=== PATIENT | male | born 1965 | race Caucasian/White ===

== ENCOUNTER 2016-05-16 16:20 | Emergency (ER) | payer MEDICARE, MEDICAID ==
[~2016-05-16] VITALS: Ht 190.5 cm; Wt 88.6 kg
[~2016-05-16 16:20] MED LIST: LORA2TAB PO; SERT50TA PO
[2016-05-16 16:22] VITALS: BP 120/80; PULSE 76; RESP 20; O2SAT 98
--- NOTE | 2016-05-16 18:24 | ED.REPORT ---
HPI-Psychiatric Illness Date of Service May 16, 2016 ED Provider: Frederick Zavala MD Pt is a 50 y/o male w/ a hx of alcohol abuse presenting to the ED for medical clearance for detox. His last drink was 11:30 this morning. He is experiencing intermittent symptoms of withdrawal which include mild diaphoresis and diarrhea which he believes is related to alcohol. He denies hematochezia, bowel incontinence. He was given an Ativan taper last time. Denies drug use other than THC. Breathalyzer at time of interview = 0. Nursing Notes Stated Complaint: DETOX Chief Complaint: Substance Abuse Nursing Notes Reviewed: Yes Allergies: Coded Allergies: No Known Allergies (Verified Allergy, Unknown, 06/14/15) Scheduled Sertraline HCl (Zoloft) 50 Mg Tablet 50 MG PO DAILY Scheduled PRN Lorazepam (Lorazepam) 2 Mg Tablet 2 MG PO TID PRN PRN For Anxiety Lorazepam (Ativan) 1 Mg Tablet 1 MG PO TID PRN PRN For Alcohol Cessation General Time Seen by MD: 18:18 Chief Complaint Other (Detox clearance) Hx Obtained From: Patient Arrived By: Walk-in Onset Occurred: 5 - 8 hours ago Symptom Duration: Since onset Progression Since Onset: Unchanged Severity: Current: No pain currently Severity: Maximum: No pain Recent Healthcare: Previous diagnosis Similar Sx Previous: Yes Risk-Psychiatric Illness Suicide Risk Stratification RF Statements: Risk factors N/A Past Medical History Past Medical History ADHD- Patient believes he has had it since he was a child Anxiety Alcohol abuse Past Surgical History Cervical spine fusion Family History Noncontributory Smoking History Current Every Day Smoker Social History Alcohol Use: >5 per day Drug Use: THC Other Social History: , Local resident Ambulatory Status Independent Review of Systems Constitutional: Denies: Chills, Fever GI: Reports: Diarrhea, Denies: Hematochezia Skin: Reports Diaphoresis Neurologic: Denies: Shaking Psychiatric: Denies: Hallucinations, auditory, Hallucinations, visual Complete sys rev & neg: except as marked. Physical Exam Initial Vital Signs Vital Signs (First) Date Time Temp Pulse Resp B/P Pulse Ox O2 Delivery O2 Flow Rate FiO2 05/16/16 16:22 36.1 76 20 120/80 98 Room Air Initial VS: Reviewed, Vital signs normal Head / Eyes: Atraumatic, Normocephalic, PERRL ENT: Mucous membranes moist, Conjunctiva normal, No scleral icterus Neck: Supple, Full range of motion Respiratory: Breath sounds normal, Clear to auscultation, No respiratory distress Cardiovascular: Regular rate & rhythm, Heart sounds normal, Intact distal pulses Abdomen / GI: Soft, Non-tender, No guarding, No rebound, No distention Extremities: Vascular intact, Neuro intact, No swelling, No tenderness Skin: Warm, Dry, No cyanosis General/Constitutional: Awake, Alert, No acute distress, Cooperative, Not toxic appearing Appearance / Presentation: Negative: Intoxicated Neurologic: Oriented X3, Speech NL, No motor deficits, No sensory deficits, Memory NL, Gait NL Psychiatric: Affect NL, Mood NL, No hallucinations, Cognitive function NL, Judgment/insight NL, Thought content NL Re-Eval/Medical Decision Counseled Regarding: Diagnosis, Need for follow-up, When/why to return to ED Discharge & Departure Impression: Primary Impression: Alcohol abuse )( Condition at Discharge: No danger to self, No danger to others, No suicidal ideation, No homicidal ideation, Clear for alcohol rehab Disposition: Home Discharge Condition All VS Reviewed: Yes Condition: Stable Additional Instructions: Go directly to detox. Take the Ativan taper as prescribed. Do not miss any doses. Return to the emergency department if you believe you are experiencing alcohol withdrawal that is not manageable by [facility]. Referrals: NOPCP (PCP) Scribe Attestation Portions of this note were transcribed by Ricardo Wills. I, Dr. Zavala personally performed the history, physical exam and medical decision-making; I reviewed and confirmed the accuracy of the information in the transcribed note. Signed by August Meyer, 05/16/16 - 1829 Frederick Zavala MD May 16, 2016 18:24 RICARDO WILLS May 16, 2016 18:28
[2016-05-16] MEDS ORDERED: LORA-303 PO (18:25)
== END 2016-05-16 18:50 | disposition home or self-care (01) ==
LOC: SED 16:20
DX: F10.129 Alcohol abuse with intoxication, unspecified (principal); R19.7 Diarrhea, unspecified; R61 Generalized hyperhidrosis; F90.9 Attention-deficit hyperactivity disorder, unspecified type; F17.200 Nicotine dependence, unspecified, uncomplicated

== ENCOUNTER 2016-06-27 16:20 | Emergency (ER) | payer MEDICARE, MEDICAID ==
[~2016-06-27] VITALS: Ht 190.5 cm; Wt 90.0 kg
[~2016-06-27 16:20] MED LIST changes: +LORA-303 PO
[2016-06-27 16:32] VITALS: BP 102/67; PULSE 71; RESP 16; O2SAT 97
--- NOTE | 2016-06-27 20:53 | ED.REPORT ---
HPI-General Illness Date of Service Jun 27, 2016 ED Provider: Audra Molina MD A 50 year old male with a history of ADHD, anxiety, and alcohol abuse presents to the ED requesting evaluation for alcohol detox before enrolling in [facility], where he currently has a bed reserved. The patient's last alcoholic drink was 12:30 today. He reports nausea and mild tremor currently. The patient denies fever, vomiting, diarrhea, or other symptoms. He has had similar detox attempts in the past treated with an Ativan taper. Nursing Notes Stated Complaint: DETOX Chief Complaint: Substance Abuse Nursing Notes Reviewed: Yes Allergies: Coded Allergies: No Known Allergies (Verified Allergy, Unknown, 06/27/16) Scheduled Sertraline HCl (Zoloft) 50 Mg Tablet 50 MG PO DAILY Scheduled PRN Lorazepam (Lorazepam) 2 Mg Tablet 2 MG PO TID PRN PRN For Anxiety Lorazepam (Ativan) 1 Mg Tablet 1 MG PO TID PRN PRN For Alcohol Cessation General Time Seen by MD: 20:52 Chief Complaint Other (Alcohol Detox) Hx Obtained From: Patient Arrived By: Walk-in Onset Occurred: 5 - 8 hours ago Symptom Duration: Since onset Severity: Current: No pain currently Severity: Maximum: No pain Associated with: Reports: Nausea, Denies: Fever Pertinent Negative: Relieved by nothing Context Related History: Reports Drug dependence, Reports Psychiatric history Recent Healthcare: No recent doctor visit Similar Sx Previous: Yes Past Medical History Past Medical History ADHD- Patient believes he has had it since he was a child Anxiety Alcohol abuse Past Surgical History Cervical spine fusion Family History Noncontributory Smoking History Current Every Day Smoker Social History Alcohol Use: >5 per day Drug Use: THC Other Social History: , Local resident Ambulatory Status Independent Review of Systems + Request for alcohol detox evaluation Full Review of Systems Constitutional: Denies: Fever Respiratory: Denies: Non-productive cough, Shortness of breath GI: Reports: Nausea, Denies: Diarrhea, Vomiting Neurologic: Reports: Shaking (Mild tremor) Complete sys rev & neg: except as marked. Physical Exam Vital Signs Vital Signs Date Time Temp Pulse Resp B/P Pulse Ox O2 Delivery O2 Flow Rate FiO2 06/27/16 22:08 36.8 72 12 107/64 99 Room Air 06/27/16 21:23 36.7 72 14 108/64 98 Room Air 06/27/16 16:32 36.4 71 16 102/67 97 Room Air Initial VS: Reviewed, Vital signs normal Head / Eyes: Atraumatic, Normocephalic ENT: Conjunctiva normal, No scleral icterus Neck: Supple, Full range of motion Respiratory: Breath sounds normal, Clear to auscultation, No respiratory distress Extremities: Vascular intact, Neuro intact, No swelling Skin: Warm, Dry, No cyanosis Psychiatric: Mood/affect normal, Behavior normal, Normal thought content General/Constitutional: Awake, Alert, No acute distress Cardiovascular: Heart rate NL, Regular rhythm, Heart sounds NL, No murmurs, No rubs Neurologic: Oriented X3, Speech NL Movement Abnormality: Positive: Tremor Interpretation & Diagnostics Breathalyzer: 0 URINE DRUG SCREEN: + Benzodiazepines + Marijuana Otherwise Negative Lab Results Interpretation Result Diagram: 06/27/16211106/27/162111 Test 06/27/16 19:22 06/27/16 21:12 Hold Urine Received (Received) White Blood Count 11.5th/mm3 (3.8-10.1) Red Blood Count 5.03mil/mm3 (4.40-5.80) Hemoglobin 15.8g/dL (13.8-17.2) Hematocrit 46.6% (41.0-50.0) Mean Corpuscular Volume 92.6fL (81-100) Mean Corpuscular Hemoglobin 31.4pg (27.0-35.0) Mean Corpuscular Hemoglobin Concent 33.9% (32.0-37.0) Red Cell Distribution Width 13.4% (12.3-15.4) Platelet Count 460bil/L (150-400) Neutrophils (%) (Auto) 65.8% (40-74) Lymphocytes (%) (Auto) 22.7% (14-46) Monocytes (%) (Auto) 8.2% (4-12) Eosinophils (%) (Auto) 2.5% (0-5) Basophils (%) (Auto) 0.5% (0-3) Sodium Level 138mEq/L (134-144) Potassium Level 4.2mEq/L (3.5-5.2) Chloride Level 100mEq/L (97-108) Carbon Dioxide Level 24mmol/L (18-29) Blood Urea Nitrogen 14mg/dL (6-24) Creatinine 0.91mg/dL (0.76-1.27) Estimat Glomerular Filtration Rate 94mL/min (>59) Glucose Level 89mg/dL (60-99) Calcium Level 9.6mg/dL (8.5-10.1) Magnesium Level 2.2mg/dL (1.6-2.6) Total Bilirubin 0.5mg/dL (0.0-1.2) Aspartate Amino Transf (AST/SGOT) 26U/L (0-50) Alanine Aminotransferase (ALT/SGPT) 24U/L (0-44) Alkaline Phosphatase 103U/L (25-150) Total Protein 8.0g/dL (6.4-8.4) Albumin 4.7g/dL (3.4-5.0) Re-Eval/Medical Decision Med Decision/Clinical Course The patient requests medical clearance for detox from alcohol. He does not show any significant signs of alcohol withdrawal. He already has a bed awaiting him. He does not have any physical complaints and was medically cleared. Source of Hx: Old records Time of Eval: 21:30 Patient Status: Condition improved Re-Evaluation/Progress Note: Discussed with patient lab results, diagnosis, and plan for discharge to [facility]. Follow-up and return to the ER instructions given. Patient agrees with plan for care and all questions were addressed. Counseled Regarding: Diagnosis, Lab results, Need for follow-up, When/why to return to ED Discharge & Departure Primary Impression: Alcohol abuse Disposition: Home Discharge Condition All VS Reviewed: Yes Condition: Improved Patient Instructions: Alcohol Withdrawal (ED) Additional Instructions: Go straight to [facility]. Use the Ativan taper as prescribed. Call your primary care provider tomorrow for a follow-up appointment. Return to the ER with any new or worsening symptoms. Referrals: NOPCP (PCP) Scribe Attestation Portions of this note were transcribed by Daysi Cool. I, Dr. Molina, personally performed the history, physical exam, and medical decision-making; I reviewed and confirmed the accuracy of the information in the transcribed note. Signed by: August Viera, 06/27/2016, 22:40 Audra Molina MD Jun 27, 2016 20:53 DAYSI COOL Jun 27, 2016 21:02
[2016-06-27] MEDS ORDERED: LORazepam 1 mg Tablet PO ONE (21:00)
[2016-06-27] MEDS ORDERED: _LORazepam 2 MG Tablet PO SCH (21:20)
[2016-06-27 21:23] VITALS: BP 108/64; PULSE 72; RESP 14; O2SAT 98
[2016-06-27 21:28] LABS: BASOPHILS % (AUTO) 0.5 % (0-3); EOSINOPHILS % (AUTO) 2.5 % (0-5); MONOCYTES % (AUTO) 8.2 % (4-12); Mean Corpuscular Hemoglobin 31.4 pg (27.0-35.0); Mean Corpuscular Volume 92.6 fL (81-100); NEUTROPHILS % (AUTO) 65.8 % (40-74); Platelet Count 460 bil/L (150-400)
[2016-06-27 21:51] LABS: Magnesium 2.2 mg/dL (1.6-2.6)
[2016-06-27 22:08] VITALS: BP 107/64; PULSE 72; RESP 12; O2SAT 99
== END 2016-06-27 23:15 | disposition other institution (70) ==
LOC: SED 16:20
DX: F10.129 Alcohol abuse with intoxication, unspecified (principal); R11.0 Nausea; R25.1 Tremor, unspecified; F90.9 Attention-deficit hyperactivity disorder, unspecified type; F17.200 Nicotine dependence, unspecified, uncomplicated

== ENCOUNTER 2016-07-02 15:24 | Emergency (ER) | payer MEDICARE, MEDICAID ==
[~2016-07-02] VITALS: Ht 190.5 cm; Wt 90.0 kg
[2016-07-02 15:30] VITALS: BP 160/108; PULSE 87; RESP 16; O2SAT 96
--- NOTE | 2016-07-02 15:48 | ED.REPORT ---
HPI-Psychiatric Illness Date of Service Jul 02, 2016 ED Provider: Mitul Barrera DO A 50 year old male with a history of ADHD, anxiety, and EtOH abuse presents to the ED with suicidal ideation that began a few days ago. Patient was seen in the ED on 06/27 seeking detox and was placed in a bed at [facility]. He reports that he recently relapsed and has been using THC, meth, and EtOH. Patient states that he has active thoughts of "walking in front of traffic" or "shooting myself in the head". He reportedly feels "out of control" and has been "walking aimlessly" for the past few days. Associated symptoms include recent stress and insomnia for the past 2 days. He reports similar thoughts in the past, but states that he has never told anyone. He denies any homicidal ideation or hallucinations. Nursing Notes Stated Complaint: SUICIDAL Chief Complaint: Psychiatric Complaint Nursing Notes Reviewed: Yes Allergies: Coded Allergies: No Known Allergies (Verified Allergy, Unknown, 07/02/16) No Active Prescriptions or Reported Meds General Time Seen by MD: 15:45 Chief Complaint Suicidal ideation Hx Obtained From: Patient Arrived By: Walk-in Onset Occurred: 3 days ago Context of Onset: Illicit drug use, EtOH use, Marijuana use Symptom Duration: Since onset Progression Since Onset: Constant Pertinent Negative: Pt denies other symptoms Recent Healthcare: No recent hospitalization, Recent doctor visit Risk-Psychiatric Illness Suicide Risk Stratification Suicide Risk Factors - Adult: : Substance abuse RF Statements: Risk factors reviewed Past Medical History Past Medical History ADHD- Patient believes he has had it since he was a child Anxiety Alcohol abuse Past Surgical History Cervical spine fusion Family History Noncontributory Smoking History Current Every Day Smoker Social History Alcohol Use: >5 per day Drug Use: Meth, THC Other Social History: , Local resident Ambulatory Status Independent Review of Systems Constitutional: Denies: Chills, Fever Respiratory: Denies: Shortness of breath GI: Denies: Nausea, Vomiting Neurologic: Denies: Change LOC Psychiatric: Reports: Insomnia, Stress, Suicidal ideation, Denies: Hallucinations, auditory, Hallucinations, visual, Homicidal ideation Complete sys rev & neg: except as marked. Physical Exam Initial Vital Signs Vital Signs (First) Date Time Temp Pulse Resp B/P Pulse Ox O2 Delivery O2 Flow Rate FiO2 07/02/16 15:30 36.1 87 16 160/108 96 Room Air Initial VS: Reviewed Head / Eyes: Atraumatic, Normocephalic, PERRL Extremities: Vascular intact, Neuro intact, No swelling, No tenderness Skin: Warm, Dry, No cyanosis General/Constitutional: Awake, Alert Neurologic: Oriented X3, Speech NL, No motor deficits, No sensory deficits Psychiatric: Not homicidal, No hallucinations Abnormal Mood/Affect: Positive: Flat affect Abnormal Thinking / Perception: Positive: Suicidal, with plan Respiratory / Chest: Atraumatic, No respiratory distress Abdomen: Atraumatic Interpretation & Diagnostics Lab Results Interpretation Result Diagram: 07/02/16 1655 07/02/16 1655 Test 07/02/16 16:55 White Blood Count 13.6th/mm3 (3.8-10.1) Red Blood Count 5.34mil/mm3 (4.40-5.80) Hemoglobin 16.8g/dL (13.8-17.2) Hematocrit 48.4% (41.0-50.0) Mean Corpuscular Volume 90.6fL (81-100) Mean Corpuscular Hemoglobin 31.5pg (27.0-35.0) Mean Corpuscular Hemoglobin Concent 34.7% (32.0-37.0) Red Cell Distribution Width 13.5% (12.3-15.4) Platelet Count 437bil/L (150-400) Neutrophils (%) (Auto) 75.1% (40-74) Lymphocytes (%) (Auto) 15.9% (14-46) Monocytes (%) (Auto) 7.9% (4-12) Eosinophils (%) (Auto) 0.5% (0-5) Basophils (%) (Auto) 0.4% (0-3) Sodium Level 139mEq/L (134-144) Potassium Level 4.3mEq/L (3.5-5.2) Chloride Level 98mEq/L (97-108) Carbon Dioxide Level 22mmol/L (18-29) Blood Urea Nitrogen 12mg/dL (6-24) Creatinine 0.80mg/dL (0.76-1.27) Estimat Glomerular Filtration Rate 109mL/min (>59) Glucose Level 94mg/dL (60-99) Calcium Level 10.1mg/dL (8.5-10.1) Total Bilirubin 0.9mg/dL (0.0-1.2) Aspartate Amino Transf (AST/SGOT) 29U/L (0-50) Alanine Aminotransferase (ALT/SGPT) 22U/L (0-44) Alkaline Phosphatase 117U/L (25-150) Total Protein 8.3g/dL (6.4-8.4) Albumin 4.8g/dL (3.4-5.0) Thyroid Stimulating Hormone (TSH) 1.010uIU/mL (0.450-4.500) Hold Rider Top Tube Received (Received) General Lab Results Interp 2: Alcohol level NL (0) Drug Screen / Level Interp Urine pos amphetamines Re-Eval/Medical Decision Med Decision/Clinical Course Suicidal in the setting of very recent polysubstance abuse, patient will be observed in the emergency department for further evaluation. Care transferred to Dr. Simmons. Counseled Regarding: Diagnosis, Lab results Discharge & Departure Shift Change Sign-Out Patient Care Transferred: Yes Discussed Complaint(s): Yes Laboratory Evaluation: Lab evaluation discussed Response to Therapy: Improved Additonal Information: Dr. Simmons Impression: Primary Impression: Substance abuse Discharge Condition All VS Reviewed: Yes Condition: Stable Referrals: NOPCP (PCP) Care Transferred to: Dr. Simmons Care Transferred at: 18:00 August Attestation Portions of this note were transcribed by Romel Rojas. I, Dr. Octavio Patel personally performed the history, physical exam and medical decision-making; I reviewed and confirmed the accuracy of the information in the transcribed note. Signed by: August Bashir, 07/02/16 Mitul Bennett DO Jul 02, 2016 15:48 ROMEL ROJAS Jul 02, 2016 15:57
[2016-07-02] MEDS ORDERED: LORazepam 2 mg Tablet PO ONE (17:05)
[2016-07-02 17:16] LABS: BASOPHILS % (AUTO) 0.4 % (0-3); EOSINOPHILS % (AUTO) 0.5 % (0-5); MONOCYTES % (AUTO) 7.9 % (4-12); Mean Corpuscular Hemoglobin 31.5 pg (27.0-35.0); Mean Corpuscular Volume 90.6 fL (81-100); NEUTROPHILS % (AUTO) 75.1 % (40-74); Platelet Count 437 bil/L (150-400)
[2016-07-02] MEDS ORDERED: diphenhydrAMINE 25 mg Capsule PO ONE (18:30)
[2016-07-02 19:20] VITALS: BP 139/106; PULSE 65; RESP 20; O2SAT 95
[2016-07-03 00:35] VITALS: BP 145/90; PULSE 73; RESP 20; O2SAT 97
[2016-07-03] MEDS ORDERED: diphenhydrAMINE 25 mg Capsule PO ONE (01:00)
[2016-07-03 05:29] VITALS: BP 124/77; PULSE 71; RESP 20; O2SAT 98
[2016-07-03 08:36] VITALS: BP 130/90; PULSE 87; RESP 17; O2SAT 98
== END 2016-07-03 08:37 | disposition other institution (70) ==
LOC: SED 15:24
DX: R45.851 Suicidal ideations (principal); F17.200 Nicotine dependence, unspecified, uncomplicated

== ENCOUNTER 2016-07-29 22:23 | Emergency (ER) | payer MEDICARE, MEDICAID ==
[2016-07-29 22:37] VITALS: BP 153/101; PULSE 79; RESP 18; O2SAT 97
--- NOTE | 2016-07-29 23:04 | ED.REPORT ---
HPI-General Illness Date of Service Jul 29, 2016 ED Provider: Edgard Gomez MD A 50 year old male with a history of anxiety, alcohol abuse, and methamphetamine abuse presents to the ED requesting clearance for [facility]. The pt has been drinking heavily for 30 years, consuming approximately twelve 24 oz Hurricanes per day, which are 8% alcohol. His last drink was one to two hours ago and his last use of methamphetamines was two days ago. The pt has been in detox before, which is effective for two to four weeks, but feels extreme anxiety, restlessness, and compulsion to buy alcohol when he returns home. His withdrawal symptoms consist of mild tremulousness with no history of seizures. He also denies any history of liver disease or psychiatric admission. The pt's significant other is currently in alcohol detox. He has two children ( 19 months old and 5 months old) who are in the care of their grandmother. The pt has no history of felonies, though he does have a history of minor offences. The pt has been seen in the ED multiple times for similar complaints. Nursing Notes Stated Complaint: SUBSTANCE ABUSE Chief Complaint: Substance Abuse Nursing Notes Reviewed: Yes Allergies: Coded Allergies: No Known Allergies (Verified Allergy, Unknown, 07/02/16) No Active Prescriptions or Reported Meds General Time Seen by MD: 22:59 Chief Complaint Other (clearance for Crisis) Hx Obtained From: Patient Arrived By: Walk-in Sudden in Onset?: No Onset Occurred: More than a week ago... Symptom Duration: Since onset Recent Healthcare: No recent hospitalization Similar Sx Previous: Yes Past Medical History Past Medical History ADHD- Patient believes he has had it since he was a child Anxiety Alcohol abuse Past Surgical History Cervical spine fusion Family History Noncontributory Smoking History Current Every Day Smoker Social History Alcohol Use: >5 per day Drug Use: Meth (smokes), THC Other Social History: , Local resident Ambulatory Status Independent Review of Systems detox request Full Review of Systems Constitutional: Denies: Fever Respiratory: Denies: Non-productive cough, Shortness of breath Cardiovascular: Denies: Chest pain GI: Denies: Abdominal pain, Vomiting Musculoskeletal: Denies: Back pain Complete sys rev & neg: except as marked. Physical Exam Vital Signs Vital Signs Date Time Temp Pulse Resp B/P Pulse Ox O2 Delivery O2 Flow Rate FiO2 07/30/16 03:46 36.7 89 16 137/93 98 Room Air 07/29/16 22:37 36.4 79 18 153/101 97 Room Air Initial VS: Reviewed, Vital signs abnormal General/Constitutional: Awake, Alert Head / Eyes: Atraumatic, Normocephalic, PERRL, EOMI ENT: Atraumatic, Airway patent, Mucous membranes moist Neck: Atraumatic, Supple, Full range of motion Respiratory / Chest: Atraumatic, Breath sounds NL, Breath sounds = bilat, No respiratory distress Cardiovascular: Heart rate NL, Regular rhythm, Heart sounds NL Abdomen: Atraumatic, Soft, Non-tender Back: Atraumatic, Full range of motion Upper Extremities Upper Extremity / MS: Atraumatic, Full range of motion Lower Extremity / Pelvis / MS: Atraumatic, Full range of motion Skin: Atraumatic, Color NL, No rash, Warm, Dry Neurologic: Oriented X3, Speech NL, No motor deficits, No sensory deficits Psychiatric: Affect NL, Mood NL Interpretation & Diagnostics Lab Results Interpretation Result Diagram: 07/29/16 2332 07/29/16 2332 Test 07/29/16 23:00 07/29/16 23:32 Hold Urine Received (Received) White Blood Count 16.1th/mm3 (3.8-10.1) Red Blood Count 5.60mil/mm3 (4.40-5.80) Hemoglobin 17.7g/dL (13.8-17.2) Hematocrit 52.7% (41.0-50.0) Mean Corpuscular Volume 94.1fL (81-100) Mean Corpuscular Hemoglobin 31.6pg (27.0-35.0) Mean Corpuscular Hemoglobin Concent 33.6% (32.0-37.0) Red Cell Distribution Width 14.0% (12.3-15.4) Platelet Count 354bil/L (150-400) Neutrophils (%) (Auto) 78.5% (40-74) Lymphocytes (%) (Auto) 9.8% (14-46) Monocytes (%) (Auto) 10.3% (4-12) Eosinophils (%) (Auto) 0.8% (0-5) Basophils (%) (Auto) 0.4% (0-3) Prothrombin Time 10.2sec (8.1-12.5) Prothromb Time International Ratio 0.95ratio Sodium Level 129mEq/L (134-144) Potassium Level 4.4mEq/L (3.5-5.2) Chloride Level 93mEq/L (97-108) Carbon Dioxide Level 23mmol/L (18-29) Blood Urea Nitrogen 18mg/dL (6-24) Creatinine 0.85mg/dL (0.76-1.27) Estimat Glomerular Filtration Rate 102mL/min (>59) Glucose Level 106mg/dL (60-99) Calcium Level 10.5mg/dL (8.5-10.1) Magnesium Level 2.2mg/dL (1.6-2.6) Total Bilirubin 1.1mg/dL (0.0-1.2) Aspartate Amino Transf (AST/SGOT) 38U/L (0-50) Alanine Aminotransferase (ALT/SGPT) 36U/L (0-44) Alkaline Phosphatase 109U/L (25-150) Total Protein 8.8g/dL (6.4-8.4) Albumin 5.2g/dL (3.4-5.0) Lipase 15U/L (13-60) Hold Rider Top Tube Received (Received) Re-Eval/Medical Decision Med Decision/Clinical Course 50-year-old male presents for detox. He has never had complicated detox with seizures or requiring hospitalization. His laboratory evaluation now is unremarkable with the exception of elevated white count. There is no physical exam evidence of a source of infection causing this elevation. He has been told in the past on multiple occasions that he runs a high white count. He is being sent to [facility] with a prepack of tapering dose of Ativan. Source of Hx: Old records Time of Eval: 02:33 Patient Status: Condition improved Re-Evaluation/Progress Note: Pt rechecked, who is stable. He is informed of the diagnosis and plan for discharge. The pt understands and agrees with the plan. All questions are addressed at this time. Counseled Regarding: Diagnosis, Lab results, Need for follow-up, When/why to return to ED Discharge & Departure Primary Impression: Alcohol withdrawal Complication of substance-induced condition: uncomplicated Qualified Code: F10.230 - Alcohol dependence with withdrawal, uncomplicated Disposition: Home Discharge Condition All VS Reviewed: Yes Condition: Stable Patient Instructions: Alcohol Withdrawal (ED) Additional Instructions: You are medically cleared. There are no significant medical problems that will interfere with your detox. Go directly to [facility]. Lorazepam (Ativan ) taper, please see prescription for details. Referrals: [facility] Scribe Attestation Portions of this note were transcribed by Wes Easton. I, Dr. Gomez personally performed the history, physical exam and medical decision-making; I reviewed and confirmed the accuracy of the information in the transcribed note. Signed by: August Gaxiola, 07/30/16 and 0239. copies to: [facility] ; [facility] Edgard Gomez MD Jul 29, 2016 23:04 WES EASTON Jul 30, 2016 00:00
[2016-07-29 23:44] LABS: BASOPHILS % (AUTO) 0.4 % (0-3); EOSINOPHILS % (AUTO) 0.8 % (0-5); MONOCYTES % (AUTO) 10.3 % (4-12); Mean Corpuscular Hemoglobin 31.6 pg (27.0-35.0); Mean Corpuscular Volume 94.1 fL (81-100); NEUTROPHILS % (AUTO) 78.5 % (40-74); Platelet Count 354 bil/L (150-400)
[2016-07-30] LABS: INR 0.95 ratio
[2016-07-30 00:09] LABS: Magnesium 2.2 mg/dL (1.6-2.6)
[2016-07-30] MEDS ORDERED: _LORazepam 2 MG Tablet PO SCH (02:30)
[2016-07-30 03:46] VITALS: BP 137/93; PULSE 89; RESP 16; O2SAT 98
== END 2016-07-30 02:45 | disposition home or self-care (01) ==
LOC: SED 22:23
DX: F10.230 Alcohol dependence with withdrawal, uncomplicated (principal); F90.9 Attention-deficit hyperactivity disorder, unspecified type; F17.200 Nicotine dependence, unspecified, uncomplicated